=== PATIENT | female | born 1980 | race Caucasian/White ===

== ENCOUNTER → 2023-08-23 14:00 | Outpatient (BNVA) | payer MEDICAID, SELFPAY | PROVIDERS: Family Provider Nurse Practitioner Family; PCP Nurse Practitioner Family; Visit Provider Nurse Practitioner Family | DX: N93.9 Abnormal uterine and vaginal bleeding, unspecified (principal); Z98.890 Other specified postprocedural states; Z98.51 Tubal ligation status; I10 Essential (primary) hypertension; R53.83 Other fatigue; R63.4 Abnormal weight loss | CPT/HCPCS: 80053; 85025; 86304; 87070; 87077; 87184; 87205; 88175 ==

== ENCOUNTER 2023-08-26 06:49 | Outpatient (CLI) | payer MEDICAID, SELFPAY ==
--- NOTE | 2023-08-26 07:15 | US_ITS ---
WS: [id number] US pelv w/transvag [id number] HISTORY: N93.9 - Abnormal uterine and vaginal bleeding, unspecified COMPARISON: None available. Quality this examination is limited. Urinary bladder was not completely emptied for transvaginal imag ing. Uterus: 8.5 cm x 4.8 cm x 4.0 cm. The uterus is anteverted does appear normal size. There is fullness in the region of the cervix with decreased echogenicity. This decreased echogenicity extends into the lower endocervical canal. Endometrium: 0.4 cm. The endometrium towards the fundus is normal. The lower endocervical segment is abnormal. There is also some increased vascularity within the lower endocervical segment extending in to the cervix. Right ovary: 2.8 cm x 1.9 cm x 2.5 cm. Normal size and vascularity, no cystic or solid masses. Left ovary: Not visualized. Limited evaluation of the LEFT adnexa. C No free fluid in the cul-de-sac. IMPRESSION: 1. Technically difficult evaluation of the pelvic structures. 2. Abnormal fullness and echogenicity of the cervix and the lower endocervical segment with increase d vascularity. Consider cervical neoplasm or endometrial neoplasm with extension to the cervix. Biops y and direct visualization should be obtained. 3. LEFT ovary not visualized.
== END 2023-08-26 06:50 | disposition home or self-care (01) ==
LOC: RAD 06:50
PROVIDERS: Family Provider Nurse Practitioner Family; PCP Nurse Practitioner Family; Visit Provider Nurse Practitioner Family
DX: N93.9 Abnormal uterine and vaginal bleeding, unspecified (principal)
CPT/HCPCS: 76830; 76856

== ENCOUNTER → 2023-12-29 15:47 | Outpatient (BNVA) | payer MEDICAID, SELFPAY | PROVIDERS: Family Provider Nurse Practitioner Family; PCP Nurse Practitioner Family; Visit Provider Nurse Practitioner Family | DX: N39.0 Urinary tract infection, site not specified (principal) | CPT/HCPCS: 81000; 87086 ==

== ENCOUNTER → 2024-01-21 14:22 | Outpatient (BNVA) | payer MEDICAID, SELFPAY | PROVIDERS: Family Provider Nurse Practitioner Family; PCP Nurse Practitioner Family; Visit Provider Nurse Practitioner Family | DX: N39.0 Urinary tract infection, site not specified (principal) | CPT/HCPCS: 81000 ==

== ENCOUNTER 2024-04-11 14:54 | Outpatient (CLI) | payer MEDICAID, SELFPAY ==
[2024-04-11 16:25] LABS: Anion Gap 14.5 (5-19); Blood Urea Nitrogen 44 mg/dL (6-20); Calcium 8.2 mg/dL (8.5-10.5); Carbon Dioxide 25 mmol/L (22-29); Chloride 100 mmol/L (98-107); Glomerular Filtration Rate 11.9 mL/min (90-130); Glucose 98 mg/dL (65-115); Osmolality Calculated 291 mOsm/kg (285-295); Potassium 4.5 mmol/L (3.5-5.1); Sodium 135 mmol/L (136-145)
== END 2024-04-11 14:55 | disposition home or self-care (01) ==
LOC: LAB 14:57
PROVIDERS: Family Provider Nurse Practitioner Family; PCP Nurse Practitioner Family
DX: C77.5 Secondary and unspecified malignant neoplasm of intrapelvic lymph nodes (principal); C57.3 Malignant neoplasm of parametrium; R32 Unspecified urinary incontinence; N82.0 Vesicovaginal fistula
CPT/HCPCS: 80048; 83735

== ENCOUNTER → 2024-09-11 13:10 | Outpatient (BNVA) | payer MEDICAID, SELFPAY | PROVIDERS: Family Provider Nurse Practitioner Family; PCP Nurse Practitioner Family; Visit Provider Nurse Practitioner Family | DX: C67.9 Malignant neoplasm of bladder, unspecified (principal) | CPT/HCPCS: 87086 ==

== ENCOUNTER → 2024-12-15 11:33 | Outpatient (BNVA) | payer MEDICAID, SELFPAY | PROVIDERS: Family Provider Nurse Practitioner Family; PCP Nurse Practitioner Family; Visit Provider Nurse Practitioner Family | DX: R19.7 Diarrhea, unspecified (principal) | CPT/HCPCS: 87493 ==